=== PATIENT | female | born 1945 | race Caucasian/White ===

== ENCOUNTER 2017-08-06 16:06 | Emergency (ER) | payer OTHER ==
[2017-08-06] MEDS ORDERED: ONDANSETRON 4 MG/2 ML VIAL IVP ONE ×2 (16:33→16:50)
[2017-08-06] MEDS ORDERED: ONDANSETRON 4 MG/2 ML VIAL ONE (16:34)
--- NOTE | 2017-08-06 16:35 | EDPHY ---
H & P Time Seen by Provider: 08/06/17 16:10 HPI/ROS: This patient presents with chief complaint of mental status change. Her friend , Altagracia explains that the patient was with her playing bingo when she suddenly felt onset of nausea & explained "(she) can't tell if she felt nausea or stomach ache." She then into space and was verbally unresponsive for a brief period of time. She reports that she felt dizzy during that time and did not feel well. She describes dizziness as vertiginous in nature-room spinning. Altagracia put her in the car to drove here to the emergency department for further evaluation and noticed enroute that the patient had a left eye droop that was new for her. The patient looked in the mirror and confirmed that she also felt she had a left eye droop. While driving here, the patient had confusion & did not remember where she was or the name of the president. She also had diaphoresis per her friend. She is improving since arrival here in terms of apparent resolution of the left eye droop. Her confusion is also improving. The patient admits that she has not taken her blood pressure medications over the past 2 days for reasons that are unclear. She does not recall the name of her 2 blood pressure medications. ROS: Constitutional: Patient has had significant fatigue over the past 2 days sleeping much the day per her friend. HEENT: She complains of left ear feeling plugged the past few days. Neuro: She denies any focal numbness tingling weakness. She admits feeling spacey and"not right". Pulmonary: No shortness of breath or cough. Cardiovascular: No chest pain or heart palpitations. No lower extremity swelling was noted GI: Nausea as mentioned. No vomiting prior to arrival. : No complaints integumentary: Diaphoretic after onset of symptoms Endocrine: No complaints Psychiatric: Patient is currently under lot of stress from her parents both being in hospice. Completely symptoms otherwise negative. Source: Patient, Other (Patient's friend, Altagracia drove the patient in by private vehicle and provides some of the history.) Exam Limitations: No limitations - Medical/Surgical History PMH: Full Code Hypertension Other PMH: Hypertension. 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 None recently) Drug Use: None Additional Social History: Patient's parents are both dying on hospice. The patient is care taking for her parents and undergoing a lot of stress due to that. She came 2 days ago from [place] by airplane to visit Altagracia her friend to tried to get a break from the stress of her parents illness. - Physical Exam Exam: Physical exam: Vital signs are normal General: Patient is in no acute distress. HEENT: Is no external evidence of trauma on exam. Eyes: Pupils are equal and reactive to light. Extraocular motions are intact. Optic fundi: Clear with no papilledema or hemorrhage. Nose atraumatic. Ears: Clear bilaterally with no hemotympanum. Oropharynx: No dental trauma or malocclusion. No intraoral lacerations. Eyes: Pupils are equal and reactive to light. Extraocular motions are intact. Optic fundi: Clear with no papilledema or hemorrhage. Lungs: Clear to auscultation bilaterally Neck: Supple no meningismus. Cardiac: Regular rate and rhythm no murmur gallop or rub. Abdomen: Soft nontender no organomegaly Neuro: GCS of 15. Cranial nerves II through XII intact. Cerebellar exam is normal as judged by symmetric rapid hand movements bilaterally. No pronator drift. No sensory or motor deficits are appreciated. NIH stroke scale of 0 at 4:15 p.m. Shortly after arrival. Initial differential diagnosis: Hypertensive encephalopathy, stroke, TIA, Migraine, PALLIATIVE SENIOR NP lesion, intracranial bleed, myocardial ischemic event, dysrhythmia Constitutional: Initial Vital Signs O2 Sat (%) 95 08/06/17 16:45 O2 Delivery Mode Nasal Cannula O2 (L/minute) 2 Allergies/Adverse Reactions: No Known Allergies Allergy (Unverified 08/06/17 16:18) Home Medications: Medication Instructions Recorded Bp Meds 08/06/17 Lipitor 08/06/17 Lisinopril 08/06/17 Medical Decision Making - Diagnostics EKG Interpretation: 12 lead EKG performed at 1706 Sinus rhythm at 81 Intervals: Normal throughout [place]: Normal throughout ST segments: Normal throughout Overall assessment normal EKG Imaging Results: Imaging Impressions Head CT 08/06/17 16:19 Impression: There is no acute intracranial abnormality identified on this unenhanced CT evaluation. If there is further clinical concern regarding the patient's symptoms, MR imaging is suggested, if not otherwise contraindicated. Findings were discussed with STAR REDD MD at 16:35, on 08/06/2017. The patient's serum creatinine is currently pending, and a decision will be made shortly regarding proceeding to CTA of the head and neck. CT angio head and neck read is initially negative by Dr. Cornell Delacruz, radiologist with further analysis pending. Imaging: Discussed imaging studies w/ scallop dredger Radiologist ED Course/Re-evaluation: IV, monitor Patient after initial evaluation is taken to CT for brain imaging where she developed nausea and vomiting x1 treated with Zofran 4 mg IV. Her blood pressure recheck and CT is 208/128. This is treated with labetalol IV - 10 mg IV at 4:47 p.m. Patient develops recurrent nausea treated with another 4 mg of Zofran with resolution shortly thereafter. Blood pressure at 16:53 is 186/75. The patient experiences some confusion again while in the CT suite for getting where she was and why she was here. The nurse gently reminded her and she then reports that she remembered arriving here after the reminder from the nurse. Studies: Basic metabolic panel is normal. Troponin is normal. CBC IS NORMAL After patient's nausea resolved with medications I tried [place]-Hallpike test with vertiginous symptoms on both sides but no nystatin this appreciated on either side She is given meclizine to assist with her vertiginous symptoms. Discussion: Patient presents with apparent hypertensive encephalopathy with some focal neuro changes that were transient. Her blood pressure has responded well to labetalol IV. I see no evidence of intracranial bleed or acute changes on her CT brain without contrast. Her EKG appears well today-normal with a normal troponin. Do not think she is having acute myocardial ischemic event. Differential diagnosis could also include vertigo with associated hypertension, TIA or stroke. The patient warrants admission for further treatment and evaluation. Her friend requests [facility] due to proximity to her home rather than [facility]. Repeat labetalol at 5:15 p.m. For recurrence of hypertension with diastolic greater than 110 with good response. I spoke with Dr. Jerome, Hospitalist at [facility] who accepts patient for admission to a telemetry bed for further treatment and workup. I counseled the patient and her friend regarding study results and the admission plan in some detail answer other questions. At 5:30 p.m., the patient's dizziness has diminished, nausea nearly resolved. She still has some difficulty with short-term memory but otherwise has no complaints at this time with transfer pending. TOTAL BEDSIDE CRITICAL CARE TIME: 60 MIN - Data Points Laboratory Results: 08/06/17 08/06/17 08/06/17 16:38 16:33 16:32 POC Hgb 15.0 gm/dL gm/dL (12.6-16.3) POC Hct 44 % % (38-47) POC Sodium 141 mEq/L mEq/L 143 mEq/L mEq/L (135-145) (135-145) POC Potassium 4.0 mEq/L mEq/L 3.8 mEq/L mEq/L (3.3-5.0) (3.3-5.0) POC Chloride 108.0 mEq/L mEq/L 106 mEq/L mEq/L (97-110) (97-110) POC Total CO2 26 mEq/L mEq/L (22-31) POC BUN 13 mg/dL mg/dL 16 mg/dL mg/dL (7-23) (7-23) POC Creatinine 1.0 mg/dL mg/dL 0.7 mg/dL mg/dL (0.6-1.0) (0.6-1.0) POC Glucose 90 mg/dL mg/dL 90 mg/dL mg/dL (70-100) (70-100) POC Calcium 9.3 mg/dL mg/dL (8.5-10.4) POC Troponin I 0.00 ng/mL ng/mL (0.00-0.08) Medications Given: Discontinued Medications Labetalol HCl (Trandate Injection) 20 mg IVP EDNOW ONE Stop: 08/06/17 16:41 Last Admin: 08/06/17 16:45 Dose: 20 mg Meclizine HCl (Meclizine Hcl) 25 mg PO EDNOW ONE Stop: 08/06/17 17:11 Last Admin: 08/06/17 17:24 Dose: 25 mg Ondansetron HCl (Zofran) 4 mg IVP EDNOW ONE Stop: 08/06/17 16:34 Last Admin: 08/06/17 16:34 Dose: 4 mg Ondansetron HCl (Zofran) 4 mg IVP EDNOW ONE Stop: 08/06/17 16:51 Last Admin: 08/06/17 16:53 Dose: 4 mg Point of Care Test Results: CBC CBC Collection Date 08/06/17 CBC Collection Time 16:28 WBC 7.9 RBC 5.46 HGB 15.3 HCT 47.0 PLT 233 Neut # 3.9 Neut 49.7 LYMPH # 3.2 LYMPH 40.8 Other WBC # 0.8 Other WBC 9.5 MCV 86.1 Chemistry 08/06/17 08/06/17 08/06/17 16:38 16:33 16:32 POC Sodium 141 mEq/L mEq/L 143 mEq/L mEq/L (135-145) (135-145) POC Potassium 4.0 mEq/L mEq/L 3.8 mEq/L mEq/L (3.3-5.0) (3.3-5.0) POC Chloride 108.0 mEq/L mEq/L 106 mEq/L mEq/L (97-110) (97-110) POC Total CO2 26 mEq/L mEq/L (22-31) POC BUN 13 mg/dL mg/dL 16 mg/dL mg/dL (7-23) (7-23) POC Creatinine 1.0 mg/dL mg/dL 0.7 mg/dL mg/dL (0.6-1.0) (0.6-1.0) POC Glucose 90 mg/dL mg/dL 90 mg/dL mg/dL (70-100) (70-100) POC Calcium 9.3 mg/dL mg/dL (8.5-10.4) POC Troponin I 0.00 ng/mL ng/mL (0.00-0.08) ISTAT H&H 08/06/17 16:32 POC Hgb 15.0 gm/dL gm/dL (12.6-16.3) POC Hct 44 % % (38-47) Departure - Departure Disposition: Acute Care Hospital Not [facility] Clinical Impression: Hypertensive encephalopathy, Hypertensive emergency Vomiting Qualifiers: Vomiting type: unspecified Vomiting Intractability: non-intractable Nausea presence: with nausea Qualified Code(s): R11.2 - Nausea with vomiting, unspecified Condition: Serious Referrals: Unknown,Unknown [Primary Care Provider] - As per Instructions
[2017-08-06] MEDS ORDERED: IOPAMIDOL (ISOVUE 370) 100 ML BTL IV ONE (16:37)
[2017-08-06] MEDS ORDERED: LABETALOL HCL 5 MG/ML 20 ML MDV IVP ONE (16:40)
--- NOTE | 2017-08-06 17:07 | CPEKG ---
Heart Rate: 81 RR Interval: 741 P-R Interval: 152 QRSD Interval: 86 QT Interval: 396 QTC Interval: 460 P [place]: 56 QRS [place]: 50 T Wave [place]: 18 EKG Severity - NORMAL ECG - EKG Impression: SINUS RHYTHM Electronically Signed By: Krish Denton 06-Aug-2017 17:16:10
[2017-08-06] MEDS ORDERED: MECLIZINE HCL 25 MG TAB PO ONE (17:10)
[2017-08-06] MEDS ORDERED: LISINOPRIL 20 MG TAB PO ONE (17:40)
[2017-08-06 18:18] VITALS: BP 144/77
== END 2017-08-06 18:16 | disposition short-term general hospital (02) ==
LOC: CED 16:06
DX: I67.4 Hypertensive encephalopathy (principal); I16.1 Hypertensive emergency; I10 Essential (primary) hypertension
CPT/HCPCS: 70450; 70496; 70498; 93005; 96374; 96375; 99291; J2405; Q9967; 80048-PO; 82435-PO; 82565-PO; 82947-PO; 84132-PO; 84295-PO; 84484-PO; 84520-PO; 85014-PO